=== PATIENT | male | born 1995 | race Caucasian/White ===

== ENCOUNTER 2018-09-20 20:17 | Emergency (ER) | payer BC, MEDICAID ==
[~2018-09-20] VITALS: Ht 180.3 cm; Wt 77.3 kg
[2018-09-20 21:10] LABS: BASOPHILS % (AUTO) 0.7 % (0-1); EOSINOPHILS # (AUTO) 0.1 X10'3 (0-0.9); EOSINOPHILS % (AUTO) 1.2 % (0-6); HEMOGLOBIN 16.1 g/dl (14.0-17.9); LYMPHOCYTES # (AUTO) 1.2 X10'3 (1.1-4.8); LYMPHOCYTES % (AUTO) 19.4 % (21-51); MEAN CORPUSCULAR HEMOGLOBIN 29.1 PG (27.0-31.0); MEAN CORPUSCULAR HGB CONC 34.9 g/dL (33.0-36.5); MEAN CORPUSCULAR VOLUME 83.2 FL (78-98); MONOCYTES # (AUTO) 0.3 X10'3 (0-0.9); MONOCYTES % (AUTO) 5.1 % (2-12); NEUTROPHILS # (AUTO) 4.5 X10'3 (1.8-7.7); NEUTROPHILS % (AUTO) 73.6 % (42-75); PLATELET COUNT 202 X10'3 (140-440); RED BLOOD COUNT 5.53 X10'6 (4.70-6.10); RED CELL DISTRIBUTION WIDTH 12.9 % (11.5-14.5); WHITE BLOOD COUNT 6.1 X10'3 (4.5-11.0)
[2018-09-20 21:18] LABS: ALANINE AMINOTRANSFERASE 22 U/L (12-78); ALBUMIN 4.5 G/DL (3.4-5.0); ALBUMIN/GLOBULIN RATIO 1.7 (1.1-1.5); ALKALINE PHOSPHATASE 72 IU/L (46-116); ANION GAP 9 (8-16); ASPARTATE AMINO TRANSFERASE 12 U/L (10-37); BILIRUBIN,TOTAL 0.8 MG/DL (0.1-1.0); BLOOD UREA NITROGEN 11 MG/DL (7-18); CALCIUM 9.4 MG/DL (8.5-10.1); CHLORIDE 105 MMOL/L (99-107); CREATININE 1.22 MG/DL (0.60-1.10); GLUCOSE 109 MG/DL (70-104); POTASSIUM 3.3 MMOL/L (3.5-5.1); SODIUM 142 MMOL/L (135-145); TOTAL CARBON DIOXIDE 28.4 MMOL/L (24-32); TOTAL PROTEIN 7.1 G/DL (6.4-8.2); eGFR 75 ML/MIN
[2018-09-20 21:25] LABS: MAGNESIUM 2.1 MG/DL (1.5-2.4)
[2018-09-20 21:31] LABS: PARTIAL THROMBOPLASTIN TIME 30 SECONDS (22-32)
[2018-09-20] MEDS ORDERED: potassium Cl 20 mEq SR tablet PO ONE (21:40)
--- NOTE | 2018-09-20 21:40 | NUR ---
Patient resting comfortably on family luis antonio at bedside. Reports no pain at this time.
[2018-09-20 21:54] VITALS: BP 138/66
== END 2018-09-20 22:03 | disposition home or self-care (01) ==
LOC: ER 20:18
DX: R07.89 Other chest pain (principal); Z88.8 Allergy status to other drugs, medicaments and biological substances
CPT/HCPCS: 36415; 71045; 80053; 83735; 83880; 84484; 85025; 85610; 85730; 93005; 99284

== ENCOUNTER 2019-04-16 01:40 | Emergency (ER) | payer BC, MEDICAID ==
[~2019-04-16] VITALS: Ht 210.8 cm; Wt 73.6 kg
[2019-04-16] MEDS ORDERED: PROM12.512 PO (03:42)
[2019-04-16] MEDS ORDERED: HYDROcodone/acetaminophen 10/325mg tab PO ONE (04:05)
[2019-04-16] MEDS ORDERED: naproxen 500mg tablet PO ONE (04:05)
[2019-04-16] MEDS ORDERED: silver sulfadiazine cream 400gm jar TP SCH ×2 (04:10→08:00)
[2019-04-16] MEDS ORDERED: silver sulfadiazine cream 400gm jar TP ONE (04:10)
[2019-04-16] MEDS ORDERED: silver sulfadiazine cream 50gm TP ONE (04:20)
[2019-04-16 04:27] VITALS: BP 127/68
== END 2019-04-16 04:29 | disposition home or self-care (01) ==
LOC: ER 01:41
DX: T23.232A Burn of second degree of multiple left fingers (nail), not including thumb, initial encounter (principal); F17.200 Nicotine dependence, unspecified, uncomplicated; F10.99 Alcohol use, unspecified with unspecified alcohol-induced disorder; F12.90 Cannabis use, unspecified, uncomplicated; Z88.8 Allergy status to other drugs, medicaments and biological substances; Z79.899 Other long term (current) drug therapy; X02.8XXA Other exposure to controlled fire in building or structure, initial encounter; Y93.89 Activity, other specified; Y92.89 Other specified places as the place of occurrence of the external cause; Y99.8 Other external cause status; Y90.9 Presence of alcohol in blood, level not specified
CPT/HCPCS: 16000; 16020; 99284

== ENCOUNTER 2019-09-22 22:39 | Emergency (ER) | payer BC, MEDICAID ==
[~2019-09-22] VITALS: Ht 180.3 cm; Wt 72.7 kg
[~2019-09-22 22:39] MED LIST: PROM12.512 PO
[2019-09-22] MEDS ORDERED: ondansetron 4mg rapidly disintigrating tab PO ONE (23:40)
[2019-09-22] MEDS ORDERED: ONDA4TAB6 PO (23:59)
[2019-09-23 00:19] VITALS: BP 122/72
== END 2019-09-23 00:15 | disposition home or self-care (01) ==
LOC: ER 22:39
DX: B34.9 Viral infection, unspecified (principal); R42 Dizziness and giddiness; F12.90 Cannabis use, unspecified, uncomplicated; Z72.89 Other problems related to lifestyle; Z88.8 Allergy status to other drugs, medicaments and biological substances; Z79.899 Other long term (current) drug therapy
CPT/HCPCS: 93005; 99283

== ENCOUNTER 2020-11-18 13:23 | Emergency (ER) | payer BC, MEDICAID ==
[~2020-11-18] VITALS: Ht 177.8 cm; Wt 78.6 kg
[~2020-11-18 13:23] MED LIST changes: +ONDA4TAB6 PO
[2020-11-18 13:43] VITALS: BP 133/82
[2020-11-18] MEDS ORDERED: acetaminophen 325mg tablet PO ONE (14:30)
[2020-11-18] MEDS ORDERED: ibuprofen tablet 400 MG TABLET PO ONE (14:30)
== END 2020-11-18 15:25 | disposition home or self-care (01) ==
LOC: ER 13:24
DX: R07.89 Other chest pain (principal); F12.90 Cannabis use, unspecified, uncomplicated; Z72.89 Other problems related to lifestyle; Z88.8 Allergy status to other drugs, medicaments and biological substances; Z79.899 Other long term (current) drug therapy
CPT/HCPCS: 71046; 93005; 99283

== ENCOUNTER 2020-12-07 02:04 | Emergency (ER) | payer MEDICAID ==
[~2020-12-07] VITALS: Ht 177.8 cm; Wt 79.5 kg
[2020-12-07 02:09] VITALS: BP 148/84
[2020-12-07] MEDS ORDERED: diazepam 5mg tablet PO ONE (02:45)
[2020-12-07] MEDS ORDERED: DIAZ-63 PO (03:29)
[2020-12-07] MEDS ORDERED: ketorolac tromethamine 15mg/ml inj. IM ONE (03:30)
[2020-12-07] MEDS ORDERED: ketorolac trometh inj. 60 MG/2 ML VIAL IM ONE (03:30)
== END 2020-12-07 03:52 | disposition home or self-care (01) ==
LOC: ER 02:05
DX: M54.5 Low back pain (principal); G89.29 Other chronic pain; F12.90 Cannabis use, unspecified, uncomplicated; Z72.89 Other problems related to lifestyle; Z98.890 Other specified postprocedural states; Z88.8 Allergy status to other drugs, medicaments and biological substances; Z79.899 Other long term (current) drug therapy
CPT/HCPCS: 72100; 96372; 99283; J1885

== ENCOUNTER 2020-12-16 12:50 | Emergency (ER) | payer MEDICAID ==
[~2020-12-16] VITALS: Ht 177.8 cm; Wt 81.8 kg
[~2020-12-16 12:50] MED LIST changes: +DIAZ-63 PO
[2020-12-16 16:24] VITALS: BP 151/77
== END 2020-12-16 16:25 | disposition home or self-care (01) ==
LOC: ER 12:50
DX: N50.812 Left testicular pain (principal); F12.90 Cannabis use, unspecified, uncomplicated; Z72.89 Other problems related to lifestyle; Z88.8 Allergy status to other drugs, medicaments and biological substances; Z79.899 Other long term (current) drug therapy
CPT/HCPCS: 76870; 93976; 99284